=== PATIENT | male | born 1970 | race Caucasian/White ===

== ENCOUNTER → 2017-06-09 | Outpatient (CLI) | payer OTHER ==
[~2017-06-09] MED LIST: DEPO-TESTO100 MG/1 M IM; FENTANYL PA25 MCG/HR TRANSDERM; FENTANYL PA50 MCG/HR TRANSDERM; LUNESTA3 MG PO; NEURONTIN 300300 M1 PO; NEURONTIN600 MG PO; NEXIUM40 MG PO; PERCOCET 10-321 EACH PO; PERCOCET 7.5-31 EACH PO; TRAMADOL 50 MG50 MG PO; XANAX 0.5 MG0.5 MG PO
== END ==
LOC: RAD 09:10
DX: R05 Cough (principal)

== ENCOUNTER → 2017-11-18 | Outpatient (CLI) | payer OTHER | LOC: CAT 10:11 | DX: Z13.6 Encounter for screening for cardiovascular disorders (principal); E78.00 Pure hypercholesterolemia, unspecified ==

== ENCOUNTER → 2018-11-10 | Outpatient (CLI) | payer OTHER ==
[~2018-11-10] VITALS: Ht 175.3 cm; Wt 83.9 kg
[~2018-11-10] MED LIST changes: +CEFDINIR300 MG PO; +ESZOPICLONE3 MG PO; +OXYCODONE HCL20 M1 PO; +VALIUM5 MG PO; +[UNRECOGNIZED DRUG - CODE] PO
--- NOTE | ~2018-11-10 | HPC ---
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 I am seeing the patient today at the request of Dr. Erwin Hardin to discuss his use of medication and the treatment of intractable pain and anxiety. 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 Primary symptoms for the patient include weakness of the lower extremities, particularly calf down, weakness of the foot, foot drop, high step gait and severe neuropathic pain. He was first aware of his problems at age 7, but was diagnosed and he says validated at the [facility] at the age of 15. He has carried the diagnosis since that time. At age 16, he underwent bilateral reconstructive surgery on both feet. He credits that with a lying to remain weightbearing to the extent that he can be at this point in time. He is able to ambulate with the benefit of bilateral articulating AFOs. He describes his pain as mechanical, worse with weightbearing. Average daily pain even with medication is 6/10. It is a throbbing tenderness, continuous, aching and shooting. He took a disability in 2016. He was discouraged somewhat from this by Dr. Hardin because of concerns of disability syndrome and how it would affect him emotionally. He has come to recognize that the term disability does not fit well with him and he is returning to work within the next few weeks. 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 He is hopeful that he will be able to return to work, but has a significant amount of anxiety about leaving the home and returning to work. We discussed this today during his visit. From physical standpoint, he remains active in the gym a few times a week. He rides bike, stationary and does a lot of upper body workup. He has good cardiovascular workouts. He also enjoys playing the [employer]. He is . 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 This allows him to live comfortably. They just returned from nearly 3 weeks of vacation in the [facility] [address] [place] [address] PAIN MANAGEMENT CONSULTATION Name: ROBERTO ESQUIVEL Room #: REG RAVI Aleman#: [id number] Admission: 11/10/18 Attend Phys: Marcos Worthington MD Discharge: Date of : 72 Report #: [id number] month of September when they went to [employer] and also [facility]. He has 2 daughters, ages 12 and 7, who do not appear to have the disease. CURRENT MEDICATIONS: Morphine sulfate 100 mg b.i.d., oxycodone 20 mg 2-3 times daily for breakthrough pain, Lunesta 3 mg at bedtime, alprazolam 0.5 mg as needed for anxiety, diazepam 5 mg as needed for anxiety, gabapentin 300 mg daily, 6 tablets taken for control of neuropathic pain. ALLERGIES: PENICILLIN and SULFA. PAST MEDICAL HISTORY: Significant for CMT, gastritis related to anxiety he believes, and multiple foot surgeries, 1986, 1993 and 1994. SOCIAL HISTORY: Much of list as above. He denies use of tobacco and alcohol. Denies any use of illicit drugs. He has not tried marijuana and its medicinal role in so many states. He has completed an opioid risk tool and score was 1, which puts him at a low risk for addiction. Functional assessment score is high. He averages 8 for pain impact with general activity, mood, normal work, relationships with others, sleep and enjoyment of life. REVIEW OF SYSTEMS: Positive for decreased appetite and slight weight loss, fatigue, chronic sinus problems, history of constipation alternating with diarrhea, abdominal pains associated with anxiety, frequent urination, nocturia and sexual difficulty, fatigue, weakness, memory loss, nervousness and depression are all circled on the review by the patient. PHYSICAL EXAMINATION: GENERAL: Pleasant 48-year-old. He does not appear to be overmedicated, depressed. He is slightly anxious. VITAL SIGNS: Blood pressure is 112/72, heart rate 74, pulse is 64, respirations 14, O2 sat 98. BMI is 27.3. He is 5 feet 9 inches, 185 pounds. HEENT: Pupils are equal, round, reactive to light. EOMs are intact. Mucous membranes are moist. NECK: Supple. CHEST: Clear to auscultation. CARDIAC: Rhythm regular, without audible murmur. ABDOMEN: Soft without organomegaly. MUSCULOSKELETAL: Examination of the spine reveals good alignment. Normal range of motion. Tenderness across the lumbosacral segment. He has a history of an L2-L3 disk injury. Examination of the lower extremities reveals good range of motion of the hips and knee. There is atrophy below the knee in both calves. Both feet show deformity. There is some valgus deformity. Scarring from previous surgery is noted. Plantar flexion is 3+/5. Dorsiflexion bilaterally is 0/5. He has bilateral foot drop. Sensation is intact, although he says that he has some dysesthesia to touch from mid calf down bilaterally. He wears articulating AFOs. Deep tendon reflexes are 1+ knee and absent ankles [facility] [address] [place] [address] PAIN MANAGEMENT CONSULTATION Name: ROBERTO ESQUIVEL Room #: REG [facility]#: [id number] Admission: 11/10/18 Attend Phys: Marcos Worthington MD Discharge: Date of : 72 Report #: [id number] bilaterally. IMPRESSION: 1. Chronic intractable neuropathic pain secondary to Rzndymf-Fshpn-Eybgq type X. 2. High-dose opioid use, his morphine milligram equivalent is calculated at 275, 200 mg of morphine, average of 50 mg of oxycodone per day. 3. Chronic anxiety disorder, treated with benzodiazepine. 4. Insomnia. 5. 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 He likely has very low testosterone based upon symptoms. He has been treated in the past. RECOMMENDATIONS: Today's session was primarily educational and I will discuss his case further with Dr. Hardin. He is currently doing this well. He says as he has ever done. Prior to opioid therapy, he can do very little more than lay around. Now, he is able to be up on his feet more and walk with less pain. It is the excellent pain control that he has achieved that has led him to decide to return to work. He also was given great thought to his disability and how it defines some. He does not want that. He wants to be an example for his daughters and also to be more involved with his . He is worried about returning to work as would be expected after 3 years away, but he was counseled about the diversion and distraction that work will provide and the benefits that can accrue from returning back into gainful employment. I believe it will be good for him and I have encouraged him to pursue it. I have encouraged him to discuss possible testosterone replacement further with Dr. Hardin. Testing should be ordered. I talked about the opioid crisis and the CDC guidelines in some depth today during his visit. I have informed him of the morphine milligram equivalent dose of 275. This would put him at about the top 3-5% of our practice. He should continuously think about using the lowest effective dose. If he cannot, in the future, perhaps a tapering slowly by 10% might be of value. Finally, we discussed the concerns about benzodiazepine interaction with opioid medications. A 50-60% of opioid overdose tests include benzodiazepine or another sedative substance. Polypharmacy is usually its source. He has been using the combination now for some time and has not had a problem with it, but he must be careful about not exceeding doses found to be safe through his own current use. Finally, he has young daughters in the house and time passes quickly. We are finding younger and younger children are taking medications from their parents. He should be exceptionally careful about safeguarding his medications. We discussed the CDC guidelines, recommendations that patients receive all other medication from one physician and from one pharmacy are seen at regular [facility] [address] [place] [address] PAIN MANAGEMENT CONSULTATION Name: ROBERTO ESQUIVEL Room #: REG RAVI Aleman#: [id number] Admission: 11/10/18 Attend Phys: Marcos Worthington MD Discharge: Date of : 72 Report #: [id number] intervals and may require to submit to random drug testing. An opioid agreement should be on the chart with Dr. Hardin. Follow up as needed in our clinic. I will discuss case further with Dr. Hardin. At this time, although his dose is quite high, I see his function is significant and his pain control excellent. It would be hard to back these medications away from someone doing so well. By: [id number] Marcos Worthington MD /nt
[2018-11-10 09:13] VITALS: BP 112/72
--- NOTE | 2018-11-10 09:32 | NUR ---
Pain Clinic Assessment: 1. History of Osteoarthritis: Not Applicable Not Applicable History of Rheumatoid Arthritis: 2. Height: 5 ft. 9 in. 175.3 cm. Weight: 185.0 lb. oz. 83.916 kg. Patient's BMI: 27.3 3. Vital Signs: BP: 112/72 Pulse: 64 Resp: 14 Temp: 02 Sat: 98 ECG Mon: 4. Pain Intensity: 6 5. Fall Risk: Dizziness: Y Needs help standing or walking: N Fallen in the last 3 months: N Fall risk comments: 6. Patient on Blood Thinner: None 7. History of Hypertension: N 8. Opioid Therapy greater than 6 weeks: N Opiate Contract Signed: 9. Risk Assessment Tool Provided: LOW RISK 03/26 10. Functional Assessment Tool: 11. Recreational Drug Use: Never Drug Type: Tobacco Use: Never Smoker Tobacco Type: Amount or Packs/day: How Many Years: Alcohol Use: No Frequency: Quant:
== END ==
LOC: PAIN 06:45
DX: M79.671 Pain in right foot (principal); M79.672 Pain in left foot; G60.0 Hereditary motor and sensory neuropathy; G47.30 Sleep apnea, unspecified; E29.1 Testicular hypofunction; T40.2X5A Adverse effect of other opioids, initial encounter; F41.9 Anxiety disorder, unspecified; Y92.89 Other specified places as the place of occurrence of the external cause